=== PATIENT | female | born 1995 | race Caucasian/White ===

== ENCOUNTER 2016-06-19 19:03 | Emergency (ER) | payer MEDICAID ==
[~2016-06-19] VITALS: Ht 152.4 cm; Wt 42.0 kg
[2016-06-19 19:20] VITALS: Ht 152.4 cm; Wt 42.0 kg
[2016-06-19] MEDS ORDERED: IBUP-1542 PO (20:13)
[2016-06-19] MEDS ORDERED: UDROBDM PO (20:13)
[2016-06-19] MEDS ORDERED: ACET500C5 PO (20:13)
[2016-06-19] MEDS ORDERED: ONDA4TAB8 PO (20:13)
[2016-06-19] MEDS ORDERED: OSLT75C PO (20:13)
--- NOTE | 2016-06-19 20:20 | ERD ---
ER Documentation Chief Complaint Date/Time DATE: 06/19/16 TIME: 20:18 Chief Complaint l ear pain and lymph node swelling with sore throat for past 2 days HPI This is a 21-year-old female who presents to the emergency department today complaining of left earache, sore throat, body aches, fevers, cough and nausea and vomiting for the past 2 days. Denies any diarrhea. States she has taken Naprosyn for the pain. ROS All systems reviewed and are negative except as per history of present illness. Medications Home Meds Active Scripts Oseltamivir Phosphate* (Tamiflu*) 75 Mg Capsule, 75 MG PO BID for 5 Days, CAP Prov:BIPIN VALENTINEC 06/19/16 Ondansetron Hcl* (Zofran*) 4 Mg Tablet, 4 MG PO Q6H for NAUSEA AND/OR VOMITING, #30 TAB Prov:BIPIN VALENTINEC 06/19/16 Acetaminophen* (Tylophen*) 500 Mg Capsule, 1 CAP PO Q6H Y for PAIN AND OR ELEVATED TEMP, #30 CAP Prov:BIPIN VALENTINEC 06/19/16 Ibuprofen* (Motrin*) 600 Mg Tab, 600 MG PO Q6, #30 TAB Prov:BIPIN VALENTINEC 06/19/16 Guaifenesin-Dextromethorphan* (Robitussin* DM) 100MG/10MG/5ML Syrup, 10 ML PO Q4H Y for COUGH for 7 Days, ML Prov:BIPIN VALENTINEC 06/19/16 Allergies Allergies: Uncoded Allergies: PCN (Allergy, Mild, 06/19/16) Physical Exam Vitals Vital Signs Date Time Temp Pulse Resp B/P Pulse Ox O2 Delivery O2 Flow Rate FiO2 06/19/16 19:20 98.7 110 18 131/84 99 Physical Exam Const: Nontoxic-appearing Head: Atraumatic Eyes: Normal Conjunctiva ENT: Ears TMs normal. Nose no drainage. Throat no erythema no exudate Neck: Full range of motion..~ No meningismus. Resp: Clear to auscultation bilaterally Cardio: Regular rate and rhythm, no murmurs Abd: Soft, non tender, non distended. Normal bowel sounds Skin: No petechiae or rashes Neur: Awake and alert Psych: Normal Mood and Affect Procedures/MDM This is a 21-year-old female who presents to the emergency department today with influenza-like symptoms. Patient is afebrile here in the emergency department. She is slightly tachycardic however oxygen saturation 99%. He did not feel the patient requires further workup or imaging. I have low suspicion for strep pharyngitis, peritonsillar abscess, retropharyngeal abscess, otitis media, PNA, sinusitis, abscess, meningitis, sepsis, or other acute infectious bacterial process. Patient has had these symptoms for the past 2 days and she was given prescription for Tamiflu as well as medication percent control. She is given a perception for Robitussin, Tylenol, Motrin and Zofran. At this time the patient is stable for discharge and outpatient management. They should follow up with their PCP in the next 1-2. They may return to the emergency department sooner if symptoms persist or worsen. Patient understood and agreed with the plan. Departure Diagnosis: Primary Impression: Influenza-like symptoms Condition: Fair Patient Instructions: Influenza (Adult) [facility] Usted se keith hecho un examen mdico de control que le indica que no est en vinay condicin que requiera tratamiento urgente en el Departamento de Emergencia. Un estudio ms profundo y el tratamiento de landeros condicin pueden esperar sin ningn riesgo hasta que usted sea atendida/o en el consultorio de landeros mdico o vinay cl scotty. Es responsabilidad suya arreglar vinay john para el seguimiento del david. MANEJO DE CONDICIONES NO URGENTES EN EL FUTURO 1) Si usted tiene un mdico de atencin primaria: Usted debera llamar a landeros mdico de atencin primaria antes de venir al departamento de emergencia. Despus de las horas de consultorio, landeros doctor o landeros asociado/a est disponible por telfono. El mdico o enfermero de chase en el servicio telefnico puede asesorarle por angelica medio para atender el problema, o david contrario se puede programar vinay john. 2) Si usted no tiene un mdico de atencin primaria: Llame al mdico o clnica de referencia que aparece abajo norma las horas de consultorio para hacer vinay john para que le vean. CLINICAS: [facility] [phone] [facility] [phone] [facility] [phone] [place] [id number] [phone] [place] [address] [phone] [facility] [phone] [address] Additional Instructions: Llame al doctor MAANA y arie vinay JOHN PARA DENTRO DE 1-2 SAM.Dgale a la secretaria que nosotros le instruimos hacer esta john.Avise o llame si landeros condicin se empeora antes de la john. Regresa aqui si peor o no mejor. Tamiflu for flu symptoms Robitussin for cough Tylenol or Motrin for fever or body ache Zofran for nausea or vomiting BIPIN VALENTINE PA-C Jun 19, 2016 20:20
== END 2016-06-19 20:20 | disposition home or self-care (01) ==
LOC: E/R 19:03
DX: H92.02 Otalgia, left ear (principal); J02.9 Acute pharyngitis, unspecified; R50.9 Fever, unspecified; R05 Cough; R11.2 Nausea with vomiting, unspecified
CPT/HCPCS: 99284

== ENCOUNTER 2016-07-10 18:52 | Emergency (ER) | payer MEDICAID ==
[~2016-07-10] VITALS: Ht 157.5 cm; Wt 45.5 kg
[~2016-07-10 18:52] MED LIST: ACET500C5 PO; IBUP-1542 PO; ONDA4TAB8 PO; OSLT75C PO; UDROBDM PO
[2016-07-10 18:55] VITALS: Ht 157.5 cm; Wt 45.5 kg
--- NOTE | 2016-07-10 20:03 | ERD ---
ER Documentation Chief Complaint Date/Time DATE: 07/10/16 TIME: 20:01 Chief Complaint cough x 1 month HPI 21 year old female comes in with a cough x 1 month. She was seen at the onset and was told it was viral and took Mucinex. She denies fever, chest pain or shortness of breath. No recent travel. ROS All systems reviewed and are negative except as per history of present illness. Medications Home Meds Active Scripts Guaifenesin/Codeine Phosphate (CHERATUSSIN AC SYRUP) 118 Ml Liquid, 5 ML PO Q4H Y for COUGH, #118 ML Prov:ALMITA COLEMAN PA-C 07/10/16 Prednisone* (Prednisone*) 20 Mg Tab, 40 MG PO DAILY for 4 Days, TAB Prov:ALMITA COLEMAN PA-C 07/10/16 Azithromycin* (Zithromax*) 250 Mg Tablet, 250 MG PO .ZPACK DIRECTED, #6 TAB TAKE 500 MG (2 TABS) THE FIRST DAY THEN 250 MG (1 TAB) DAYS 2-5 Prov:ALMITA COLEMAN PA-C 07/10/16 Oseltamivir Phosphate* (Tamiflu*) 75 Mg Capsule, 75 MG PO BID for 5 Days, CAP Prov:BIPIN VALENTINE PA-C 06/19/16 Ondansetron Hcl* (Zofran*) 4 Mg Tablet, 4 MG PO Q6H for NAUSEA AND/OR VOMITING, #30 TAB Prov:BIPIN VALENTINEC 06/19/16 Acetaminophen* (Tylophen*) 500 Mg Capsule, 1 CAP PO Q6H Y for PAIN AND OR ELEVATED TEMP, #30 CAP Prov:BIPIN VALENTINE PA-C 06/19/16 Ibuprofen* (Motrin*) 600 Mg Tab, 600 MG PO Q6, #30 TAB Prov:BIPIN VALENTINE PA-C 06/19/16 Guaifenesin-Dextromethorphan* (Robitussin* DM) 100MG/10MG/5ML Syrup, 10 ML PO Q4H Y for COUGH for 7 Days, ML Prov:BIPIN VALENTINEC 06/19/16 Allergies Allergies: Coded Allergies: Penicillins (Verified Allergy, Unknown, 07/10/16) PMhx/Soc Medical and Surgical Hx: pt denies Medical Hx, pt denies Surgical Hx Hx Alcohol Use: No Hx Substance Use: No Hx Tobacco Use: No Smoking Status: Never smoker Physical Exam Vitals Vital Signs Date Time Temp Pulse Resp B/P Pulse Ox O2 Delivery O2 Flow Rate FiO2 07/10/16 18:55 99.4 102 20 131/66 99 Physical Exam General: Well-developed, well-nourished. The patient appears in no acute distress. HEENT: Head is normocephalic, atraumatic. No scleral icterus. Pupils are equal , round, and reactive. Oral mucous membranes are moist. No pharyngeal erythema. Neck: Supple. Nontender. Lungs: Clear to auscultation. Normal air movement. Heart: Regular rate and rhythm. S1 and S2 are normal. No murmurs, gallops, or rubs. Abdomen: Soft, nontender, nondistended. Bowel sounds are normoactive. Extremities: No clubbing or cyanosis. Normal pulses. Moving extremities x 4. No weakness. Neurologic: Alert and oriented 3. No focal deficits. Skin: Normal turgor. No rash or lesions. Results 24 hrs PROCEDURE: XR Chest. CLINICAL INDICATION: Cough TECHNIQUE: Chest AP portable. COMPARISON: No comparison available. FINDINGS: The mediastinal structures are unremarkable. The heart is normal in size and configuration. The pulmonary vascularity is normal. The lung walker are unremarkable. No consolidation is identified. The pleural spaces are unremarkable. The axial skeleton is unremarkable. IMPRESSION: No active intrathoracic disease. RPTAT: HGDB .Ramon Peña MD, Date Time Electronically viewed and signed by .Ramon Peña MD, MD on 07/10/2016 20:41 .B/ Procedures/[facility] The patient is a 21 year old female who comes in with an acute upper respiratory infection, vs acute bronchitis. The patient has a differential diagnosis of a viral upper respiratory infection, bacterial upper respiratory infection, bronchitis, pneumonia, pharyngitis, laryngitis, epiglottitis, croup, pneumonia. Patient has a normal pulmonary examination, clear breath sounds, normal pulse oximetry, with no corrective measures needed at this time. Fluids, rest, antipyretics were encouraged. Departure Diagnosis: Primary Impression: Cough Condition: Good ALMITA COLEMAN PA-C Jul 10, 2016 20:03
--- NOTE | 2016-07-10 20:41 | RADRPT ---
PROCEDURE: XR Chest. CLINICAL INDICATION: Cough TECHNIQUE: Chest AP portable. COMPARISON: No comparison available. FINDINGS: The mediastinal structures are unremarkable. The heart is normal in size and configuration. The pu lmonary vascularity is normal. The lung walker are unremarkable. No consolidation is identified. The pleural spaces are unremarkable. The axial skeleton is unremarkable. IMPRESSION: No active intrathoracic disease. RPTAT: HGDB .Ramon Peña MD, MD Date Time Electronically viewed and signed by .Ramon Peña MD, on 07/10/2016 20:41 .B/
[2016-07-10] MEDS ORDERED: AZIT250T94 PO (21:04)
[2016-07-10] MEDS ORDERED: GUAI118L22 PO (21:04)
[2016-07-10] MEDS ORDERED: PRED20TA PO (21:04)
== END 2016-07-10 21:11 | disposition home or self-care (01) ==
LOC: FTE 18:52
DX: R05 Cough (principal)
CPT/HCPCS: 71010; Z7502

== ENCOUNTER 2016-10-01 08:45 | Emergency (ER) | payer BC, MEDICAID ==
[~2016-10-01] VITALS: Ht 160 cm; Wt 45.0 kg
[~2016-10-01 08:45] MED LIST changes: +AZIT250T94 PO; +GUAI118L22 PO; +PRED20TA PO
[2016-10-01 09:03] VITALS: Ht 160 cm; Wt 45.0 kg
[2016-10-01] MEDS ORDERED: IBUP-1542 PO (09:58)
[2016-10-01] MEDS ORDERED: CIPR7.5D4 BOTH EARS (09:58)
--- NOTE | 2016-10-01 10:07 | ERA ---
ER Documentation Chief Complaint Date/Time DATE: 10/01/16 TIME: 10:00 Chief Complaint RIGHT EARACHE X4 DAYS HPI Patient is 21-year-old female who presents complaining of right ear pain right neck pain going. Patient has no other associated manifestations and reports no medical conditions. Patient denies fever, nausea, vomiting, headache, dysphagia , odynophagia, tinnitus, changes/loss of hearing, difficulty breathing, allergies. ROS All systems reviewed and are negative except as per history of present illness. Medications Home Meds Active Scripts Ibuprofen* (Motrin*) 600 Mg Tab, 600 MG PO Q6H Y for PAIN AND OR ELEVATED TEMP, #30 TAB Prov:GEE PAULA PA-C 10/01/16 Ciprofloxacin Hcl/Dexameth (Ciprodex Otic Suspension) 7.5 Ml Drops.susp, 4 DROP BOTH EARS BID for 10 Days, EA Prov:GEE PAULA PA-C 10/01/16 Guaifenesin/Codeine Phosphate (CHERATUSSIN AC SYRUP) 118 Ml Liquid, 5 ML PO Q4H Y for COUGH, #118 ML Prov:ALMITA COLEMAN PA-C 07/10/16 Prednisone* (Prednisone*) 20 Mg Tab, 40 MG PO DAILY for 4 Days, TAB Prov:ALMITA COLEMAN PA-C 07/10/16 Azithromycin* (Zithromax*) 250 Mg Tablet, 250 MG PO .ZPACK DIRECTED, #6 TAB TAKE 500 MG (2 TABS) THE FIRST DAY THEN 250 MG (1 TAB) DAYS 2-5 Prov:ALMITA COLEMAN PA-C 07/10/16 Oseltamivir Phosphate* (Tamiflu*) 75 Mg Capsule, 75 MG PO BID for 5 Days, CAP Prov:BIPIN VALENTINE PA-C 06/19/16 Ondansetron Hcl* (Zofran*) 4 Mg Tablet, 4 MG PO Q6H for NAUSEA AND/OR VOMITING, #30 TAB Prov:BIPIN VALENTINE PA-C 06/19/16 Acetaminophen* (Tylophen*) 500 Mg Capsule, 1 CAP PO Q6H Y for PAIN AND OR ELEVATED TEMP, #30 CAP Prov:BIPIN VALENTINE PA-C 06/19/16 Ibuprofen* (Motrin*) 600 Mg Tab, 600 MG PO Q6, #30 TAB Prov:BIPIN VALENTINE PA-C 06/19/16 Guaifenesin-Dextromethorphan* (Robitussin* DM) 100MG/10MG/5ML Syrup, 10 ML PO Q4H Y for COUGH for 7 Days, ML Prov:BIPIN VALENTINE PA-C 06/19/16 Allergies Allergies: Coded Allergies: Penicillins (Verified Allergy, Unknown, 07/10/16) PMhx/Soc Hx Alcohol Use: No Hx Substance Use: No Hx Tobacco Use: No Physical Exam Vitals Vital Signs Date Time Temp Pulse Resp B/P Pulse Ox O2 Delivery O2 Flow Rate FiO2 10/01/16 09:03 98.5 65 18 106/54 98 Physical Exam Const: Well-appearing 21-year-old female in no acute distress presenting with her mother sitting up in the [facility] Head: Atraumatic Eyes: Normal Conjunctiva ENT: External ears are normal appearing with gross examination. Swelling of the ear elicited pain. There is tenderness palpation of the right ear. External auditory canal of the right ear is erythematous with minimal edema. Tympanic membrane clearly visualized in both ears and not retracted/appropriate color bilaterally. Left ear exam was unremarkable. Normal Nose and Mouth. Neck: Full range of motion..~ No meningismus. Right anterior cervical lymphadenopathy tender to palpation. Resp: Clear to auscultation bilaterally Cardio: Regular rate and rhythm, no murmurs Abd: Soft, non tender, non distended. Normal bowel sounds Skin: No petechiae or rashes Back: No midline or flank tenderness Ext: No cyanosis, or edema Neur: Awake and alert Psych: Normal Mood and Affect Procedures/MDM This is a 21-year-old female with no medical conditions presenting with acute ( 3 days) right ear pain. Patient denies any fever; Physical exam revealed tympanic membranes that were not retracted in appropriate color Patient has no odontophagia or dysphagia or difficulty breathing and the patient has no headache history or changes in vision. At this time I do not suspect malignant otitis, acute otitis media, endangerment of the airway, or infection of the meningeal/cerebral tissues. We will go ahead and treat with Ciprodex for the ear infection as well as ibuprofen for discomfort. I advised the patient to return to the emergency department if symptoms worsen. Patient will be discharged with return precautions. Departure Diagnosis: Primary Impression: Otitis externa of right ear Qualified Code: H60.501 - Acute otitis externa of right ear, unspecified type Additional Impressions: Otitis externa Qualified Code: H60.501 - Acute otitis externa of right ear, unspecified type External otitis of right ear Qualified Code: H60.391 - Other infective acute otitis externa of right ear Right ear pain Ear problem Qualified Code: H93.91 - Ear problem, right Ruled Out: Malignant otitis externa, Acute otitis media Condition: Stable Patient Instructions: Otitis Externa (Child) Additional Instructions: Follow up with your PCP within the next 1-3 days for a more thorough evaluation and a possible referral to a specialist. Return the the emergency department immediately if symptoms worsen or change. If you have any questions regarding medications, ask your pharmacist or us before you leave. If any adverse reactions occur while taking your medications, discontinue the treatment and return to the emergency department immediately. Take your medications as directed, and complete the entire course of treatment. GEE PAULA PA-C Oct 01, 2016 10:07
== END 2016-10-01 10:13 | disposition home or self-care (01) ==
LOC: FTE 08:45
DX: H60.391 Other infective otitis externa, right ear (principal); H93.91 Unspecified disorder of right ear
CPT/HCPCS: 99283